=== PATIENT | female | born 1990 | race Caucasian/White ===

== ENCOUNTER 2018-11-20 17:48 | Emergency (ER) | payer BC, MEDICAID ==
--- NOTE | 2018-11-20 19:04 | ER Document Report ---
ED Medical Screen (RME) - General Chief Complaint: Vomiting Stated Complaint: VAGINAL BLEEDING Primary Care Provider: DARIUS GRESHAM DO [Primary Care Provider] - Follow up as needed TRAVEL OUTSIDE OF THE [place] IN LAST 30 DAYS: No - HPI Notes: 11/20/18 19:01 Patient is a G4, P2 28-year-old female with a less than 6-week gestation who presents complaining of nausea vomiting has been constant for the past 1 to 2 days. Patient states that she has not been able to keep anything down in 24 hours. She is hyperemesis when she is . Patient states that she did have a positive urine test 5 days ago, but has not missed menstrual cycle per patient. 2 days ago she passed a large clot and has only had brown- colored light blood when she wiped since then. Patient states that she has not had any pain or discomfort nor any cramping. Denies drug allergies. Denies BENITEZ, fever, neck pain, URI, CP, SOB, Abd pain, dysuria, back pain, or rash. I have treated and performed a rapid initial assessment of this patient. A comprehensive ED assessment and evaluation of the patient, analysis of test results and completion of medical decision making process will be conducted by additional ED providers. Patient is O+ by history, no rhogam ordered. PHYSICAL EXAMINATION: GENERAL: Well-appearing, well-nourished and in no acute distress. A&Ox4. Answers questions appropriately. LUNGS: Breath sounds clear to auscultation bilaterally and equal. No wheezes rales or rhonchi. HEART: Regular rate and rhythm without murmurs, rubs, gallops. ABDOMEN: Soft, nondistended abdomen. No guarding, no rebound. Normal bowel sounds present. No CVA tenderness bilaterally. Grossly nontender (cannot elicit thorough abd exam w/o bed, however). - Related Data Allergies/Adverse Reactions: No Known Allergies Allergy (Verified 11/20/18 17:54) Past Medical History - Immunizations Immunizations up to date: Yes Hx Diphtheria, Pertussis, Tetanus Vaccination: Yes Physical Exam - Vital signs Vitals: Temp Pulse Resp BP Pulse Ox 98.6 F 92 16 137/96 H 95 11/20/18 17:53 11/20/18 17:53 11/20/18 17:53 11/20/18 17:53 11/20/18 17:53 Course - Vital Signs Vital signs: Temp Pulse Resp BP Pulse Ox 98.6 F 92 16 137/96 H 95 11/20/18 17:53 11/20/18 17:53 11/20/18 17:53 11/20/18 17:53 11/20/18 17:53 Doctor's Discharge - Discharge Referrals: DARIUS GRESHAM, [Primary Care Provider] - Follow up as needed
--- NOTE | 2018-11-20 20:23 | ER Document Report ---
ED General - General Chief Complaint: Vomiting Stated Complaint: VAGINAL BLEEDING Time Seen by Provider: 11/20/18 20:21 Primary Care Provider: DARIUS GRESHAM DO [Primary Care Provider] - Follow up as needed TRAVEL OUTSIDE OF THE [place] IN LAST 30 DAYS: No - HPI Notes: Patient is a G4, P2 28-year-old female with a less than 6-week gestation who presents complaining of nausea vomiting has been constant for the past 1 to 2 days. Patient states that she has not been able to keep anything down in 24 hours. She is hyperemesis when she is . Patient states that she did have a positive urine test 5 days ago, but has not missed menstrual cycle per patient. 2 days ago she passed a large clot and has only had brown- colored light blood when she wiped since then. Patient states that she has not had any pain or discomfort nor any cramping. Denies drug allergies. Denies BENITEZ, fever, neck pain, URI, CP, SOB, Abd pain, dysuria, back pain, or rash. Past Medical History: Negative Past Surgical History: Reviewed in chart Social History: Reviewed in chart Family History: Reviewed and noncontributory for presenting illness Allergies: Reviewed, see documented allergy list. REVIEW OF SYSTEMS: CONSTITUTIONAL : No fever No chills No diaphoresis No recent illness EENT: No vision changes No congestion No sore throat CARDIOVASCULAR: No chest pain No palpitations RESPIRATORY: No shortness of breath No cough No difficulty breathing GASTROINTESTINAL: No abdominal pain No nausea vomiting No diarrhea GENITOURINARY: No dysuria No hematuria No difficulty urinating MUSCULOSKELETAL: No back pain No leg pain No arm pain SKIN: No rashes No lesions LYMPHATIC: No swollen, enlarged glands. NEUROLOGICAL: No lightheadedness No headache No weakness No paresthesias PSYCHIATRIC: No anxiety No depression PHYSICAL EXAMINATION: Vital signs reviewed, nursing noted reviewed. GENERAL: Well-appearing, well-nourished and in no acute distress. HEAD: Atraumatic, normocephalic. EYES: Eyes appear normal, extraocular movements intact, sclera anicteric, conjunctiva are normal. ENT: nares patent, oropharynx clear without exudates. Moist mucous membranes. NECK: Normal range of motion, supple without lymphadenopathy LUNGS: Breath sounds clear to auscultation bilaterally and equal. No wheezes rales or rhonchi. HEART: Regular rate and rhythm without murmurs ABDOMEN: Soft, nontender, normoactive bowel sounds. No rebound, guarding, or rigidity. No masses appreciated. EXTREMITIES: Nontender, good range of motion, no pitting or edema. NEUROLOGICAL: No focal neurological deficits. Moves all extremities s pontaneously Motor and sensory grossly intact on exam. PSYCH: Normal mood, normal affect. SKIN: Warm, Dry, normal turgor, no rashes or lesions noted on exposed skin - Related Data Allergies/Adverse Reactions: No Known Allergies Allergy (Verified 11/20/18 17:54) Past Medical History - Social History Smoking Status: Former Smoker Chew tobacco use (# tins/day): No Frequency of alcohol use: None Drug Abuse: None Family History: None Patient has suicidal ideation: No Patient has homicidal ideation: No Renal/ Medical History: Denies: Hx Peritoneal Dialysis - Immunizations Immunizations up to date: Yes Hx Diphtheria, Pertussis, Tetanus Vaccination: Yes Physical Exam - Vital signs Vitals: Temp Pulse Resp BP Pulse Ox 98.6 F 92 16 137/96 H 95 11/20/18 17:53 11/20/18 17:53 11/20/18 17:53 11/20/18 17:53 11/20/18 17:53 Course - Re-evaluation Re-evalutation: 11/20/18 20:36 Vitals reviewed. Nursing notes reviewed. Patient states she had had improvement of her nausea with previous pregnancies on Diclegis. We do not have Unisom but she will be given B6 and Reglan for her nausea symptoms. Ultrasound has been ordered to evaluate for possible ectopic in the setting of bleeding in early . Currently patient is not experiencing any pain. 11/20/18 21:56 Patient's ultrasound shows single live intrauterine gestation with small subchorionic hemorrhage. There is no ectopic . Patient's nausea has improved. Chart review shows her blood type is O+ and she is not requiring RhoGam. She will be referred to BUILDING INSPECTOR for follow-up. She was counseled on sy mptoms of early miscarriage and return precautions. Patient is stable for discharge. Laboratory 11/20/18 11/20/18 11/20/18 19:45 19:45 19:45 WBC 14.2 H RBC 5.19 Hgb 15.3 Hct 45.8 MCV 88 MCH 29.5 MCHC 33.5 RDW 13.1 Plt Count 288 Seg Neutrophils % 64.9 Lymphocytes % 25.7 Monocytes % 7.9 Eosinophils % 1.1 Basophils % 0.4 Absolute Neutrophils 9.2 H Absolute Lymphocytes 3.6 Absolute Monocytes 1.1 Absolute Eosinophils 0.2 Absolute Basophils 0.1 Sodium 138.1 Potassium 4.2 Chloride 100 Carbon Dioxide 21 L Anion Gap 17 BUN 14 Creatinine 0.63 Est GFR ( Amer) > 60 Est GFR (Non-Af Amer) > 60 Glucose 72 L Calcium 10.0 Total Bilirubin 1.1 Direct Bilirubin 0.3 Neonat Total Bilirubin Not Reportable Neonat Direct Bilirubin Not Reportable Neonat Indirect Bili Not Reportable AST 26 ALT 22 Alkaline Phosphatase 84 Total Protein 8.5 H Albumin 5.4 H Lipase 45.5 Beta HCG, Quant 8947.90 H Total Beta HCG POSITIVE Urine Color YELLOW Urine Appearance SLIGHTLY-CLOUDY Urine pH 6.0 Ur Specific [place] 1.027 Urine Protein 100 H Urine Glucose (UA) NEGATIVE Urine Ketones 80 H Urine Blood LARGE H Urine Nitrite NEGATIVE Urine Bilirubin NEGATIVE Urine Urobilinogen 2.0 H Ur Leukocyte Esterase SMALL H Urine WBC (Auto) 5 Urine RBC (Auto) 13 Urine Bacteria (Auto) TRACE Squamous Epi Cells Auto 11 Urine Mucus (Auto) MANY Urine Ascorbic Acid NEGATIVE Urine HCG, Qual POSITIVE H Transvaginal US 11/20/18 19:01 IMPRESSION: Single viable IUP of five weeks and six days with a subchorionic hemorrhage noted. Complex right ovarian corpus luteal cyst. - Vital Signs Vital signs: Temp Pulse Resp BP Pulse Ox 98.6 F 92 16 137/96 H 95 11/20/18 17:53 11/20/18 17:53 11/20/18 17:53 11/20/18 17:53 11/20/18 17:53 - Laboratory Result Diagrams: 11/20/18 19:45 11/20/18 19:45 Laboratory results interpreted by me: 11/20/18 11/20/18 11/20/18 19:45 19:45 19:45 WBC 14.2 H Absolute Neutrophils 9.2 H Carbon Dioxide 21 L Glucose 72 L Total Protein 8.5 H Albumin 5.4 H Beta HCG, Quant 8947.90 H Urine Protein 100 H Urine Ketones 80 H Urine Blood LARGE H Urine Urobilinogen 2.0 H Ur Leukocyte Esterase SMALL H Urine HCG, Qual POSITIVE H Discharge - Discharge Clinical Impression: Threatened miscarriage in early , Vomiting affecting Condition: Stable Disposition: HOME, SELF-CARE Instructions: Threatened Miscarriage ([facility]), Vomiting ([facility]) Additional Instructions: Please return to the emergency department if you have any worsening, or concern of your symptoms. Please return to the emergency department if you develop chest pain, difficulty breathing, severe abdominal pain, or ongoing vomiting. Please follow-up with your primary care physician in 2-3 days and any other recommended physicians. If prescribed, take all medications as directed. If you have any questions or concerns do not hesitate to return the emergency department for evaluation. Prescriptions: Doxylamine Succinate/Vit B6 [Philip Courtney 10-10 mg Tablet] 2 each PO HSP PRN #14 tablet.dr OWUSU Reason: Referrals: DARIUS GRESHAM DO [Primary Care Provider] - Follow up as needed [facility] [Provider Group] - Follow up in 3-5 days
[2018-11-20 20:25] LABS: ABSOLUTE BASOPHILS # (AUTO) 0.1 10^3/uL (0.0-0.2); ABSOLUTE EOSINOPHILS # (AUTO) 0.2 10^3/uL (0.0-0.6); ABSOLUTE LYMPHOCYTES (AUTO) 3.6 10^3/uL (0.5-4.7); ABSOLUTE MONOCYTES (AUTO) 1.1 10^3/uL (0.1-1.4); ABSOLUTE NEUT (AUTO) 9.2 10^3/uL (1.7-8.2); BASOPHILS % (AUTO) 0.4 % (0-2); EOSINOPHILS % (AUTO) 1.1 % (0-6); HEMATOCRIT 45.8 % (36.0-47.0); HEMOGLOBIN 15.3 g/dL (12.0-15.5); LYMPHOCYTES % (AUTO) 25.7 % (13-45); MEAN CORPUSCULAR HEMOGLOBIN 29.5 pg (27.0-33.4); MEAN CORPUSCULAR HGB CONC 33.5 g/dL (32.0-36.0); MEAN CORPUSCULAR VOLUME 88 fl (80-97); MONOCYTES % (AUTO) 7.9 % (3-13); PLATELET COUNT 288 10^3/uL (150-450); RED BLOOD COUNT 5.19 10^6/uL (3.72-5.28); RED CELL DISTRIBUTION WIDTH 13.1 % (11.5-14.0); SEGMENTED NEUTROPHILS % (AUTO) 64.9 % (42-78); TOTAL CELLS COUNTED % (AUTO) 100 %; WHITE BLOOD COUNT 14.2 10^3/uL (4.0-10.5)
[2018-11-20] MEDS ORDERED: PYRIDOXINE HCL 50 MG TABLET PO ONE (20:33)
[2018-11-20] MEDS ORDERED: METOCLOPRAMIDE HCL 10 MG TABLET PO ONE (20:35)
[2018-11-20 20:43] LABS: ALANINE AMINOTRANSFERASE 22 U/L (9-52); ALBUMIN 5.4 g/dL (3.5-5.0); ALKALINE PHOSPHATASE 84 U/L (38-126); ANION GAP 17 (5-19); ASPARTATE AMINO TRANSFERASE 26 U/L (14-36); BILIRUBIN,DIRECT 0.3 mg/dL (0.0-0.4); BILIRUBIN,TOTAL 1.1 mg/dL (0.2-1.3); BLOOD UREA NITROGEN 14 mg/dL (7-20); CARBON DIOXIDE 21 mmol/L (22-30); CHLORIDE 100 mmol/L (98-107); GLUCOSE 72 mg/dL (75-110); POTASSIUM 4.2 mmol/L (3.6-5.0); TOTAL PROTEIN 8.5 g/dL (6.3-8.2)
[2018-11-20 20:49] LABS: APPEARANCE,URINE SLIGHTLY-CLOUDY; BILIRUBIN,URINE NEGATIVE (NEGATIVE); COLOR,URINE YELLOW; GLUCOSE, URINE NEGATIVE (NEGATIVE); KETONES,URINE 80 mg/dL (NEGATIVE); LEUKOCYTE ESTERASE,URINE SMALL (NEGATIVE); NITRITE,URINE NEGATIVE (NEGATIVE); PROTEIN,URINE 100 mg/dL (NEGATIVE); URINE SPECIFIC GRAVITY 1.027
--- NOTE | 2018-11-20 21:18 | RADIOLOGY REPORT (SQ) ---
EXAM DESCRIPTION: US TRANSVAGINAL COMPLETED DATE/TME: 11/20/2018 19:01 CLINICAL HISTORY: 28 years, Female, + preg test by urine, passed clot 2d ago Findings: Uterus is anteverted and measures 8.6 x 5.7 x 4.2 cm. Single viable IUP is noted, corresponding to gestational age of five weeks and six days. heart rate is noted at 70 bpm. Subchorionic hemorrhage is suspected measuring 0.6 x 1.1 x 0.4 cm. Complex right ovarian cyst measuring 3.3 x 2.9 cm. Vascular flow preserved within both ovaries on color and spectral Doppler imaging. Cervix is closed measuring 2.1 cm. IMPRESSION: Single viable IUP of five weeks and six days with a subchorionic hemorrhage noted. Complex right ovarian corpus luteal cyst.
[2018-11-20 22:23] VITALS: BP 128/82
== END 2018-11-20 22:15 | disposition home or self-care (01) ==
LOC: ER 17:48
DX: O20.0 Threatened abortion (principal); O21.9 Vomiting of pregnancy, unspecified; Z3A.01 Less than 8 weeks gestation of pregnancy
CPT/HCPCS: 99284; 36415; 84702; 83690; 85025; 81025; 80053; 81001; 76817; 93976; J3490

== ENCOUNTER 2019-01-20 15:55 | Emergency (ER) | payer BC, MEDICAID ==
[2019-01-20] MEDS ORDERED: DIPHENHYDRAMINE HCL 50 MG/ML VIAL IV ONE (16:42)
[2019-01-20] MEDS ORDERED: NORMAL SALINE 1000 ML 1,000 ML IV ONE (16:42)
[2019-01-20] MEDS ORDERED: METOCLOPRAMIDE HCL INJ/PF 10 MG/2 ML SDV IV ONE (16:42)
--- NOTE | 2019-01-20 16:44 | ER Document Report ---
ED Medical Screen (RME) - General Chief Complaint: Nausea/Vomiting Stated Complaint: VOMITING Time Seen by Provider: 01/20/19 16:40 Primary Care Provider: DARIUS GRESHAM DO [Primary Care Provider] - Follow up as needed Information source: Patient Notes: Patient presents 14 weeks complaining of hyperemesis gravidarum. Patient is taking diclegis without improvement of her symptoms. Patient reports vomiting for the past 2 days. Patient denies any abdominal pain, vaginal bleeding or urinary symptoms. I have greeted and performed a rapid initial assessment of this patient. A comprehensive ED assessment and evaluation of the patient, analysis of test results and completion of the medical decision making process will be conducted by additional ED providers. TRAVEL OUTSIDE OF THE [place] IN LAST 30 DAYS: No - Related Data Allergies/Adverse Reactions: No Known Allergies Allergy (Verified 01/20/19 16:36) Past Medical History Renal/ Medical History: Denies: Hx Peritoneal Dialysis - Immunizations Immunizations up to date: Yes Hx Diphtheria, Pertussis, Tetanus Vaccination: Yes Physical Exam - Vital signs Vitals: Temp Pulse Resp BP Pulse Ox 98.4 F 91 14 132/82 H 99 01/20/19 16:07 01/20/19 16:07 01/20/19 16:07 01/20/19 16:07 01/20/19 16:07 - General General appearance: Appears well, Alert In distress: None - Abdominal Tenderness: Nontender Course - Vital Signs Vital signs: Temp Pulse Resp BP Pulse Ox 98.4 F 91 14 132/82 H 99 01/20/19 16:07 01/20/19 16:07 01/20/19 16:07 01/20/19 16:07 01/20/19 16:07 Doctor's Discharge - Discharge Referrals: DARIUS GRESHAM DO [Primary Care Provider] - Follow up as needed
[2019-01-20 17:15] LABS: ABSOLUTE BASOPHILS # (AUTO) 0.1 10^3/uL (0.0-0.2); ABSOLUTE LYMPHOCYTES (AUTO) 2.5 10^3/uL (0.5-4.7); ABSOLUTE MONOCYTES (AUTO) 0.8 10^3/uL (0.1-1.4); ABSOLUTE NEUT (AUTO) 11.3 10^3/uL (1.7-8.2); BASOPHILS % (AUTO) 0.4 % (0-2); EOSINOPHILS % (AUTO) 0.3 % (0-6); HEMATOCRIT 42.5 % (36.0-47.0); HEMOGLOBIN 14.4 g/dL (12.0-15.5); LYMPHOCYTES % (AUTO) 16.9 % (13-45); MEAN CORPUSCULAR HEMOGLOBIN 30.1 pg (27.0-33.4); MEAN CORPUSCULAR VOLUME 88 fl (80-97); MONOCYTES % (AUTO) 5.2 % (3-13); PLATELET COUNT 333 10^3/uL (150-450); RED CELL DISTRIBUTION WIDTH 13.1 % (11.5-14.0); SEGMENTED NEUTROPHILS % (AUTO) 77.2 % (42-78); TOTAL CELLS COUNTED % (AUTO) 100 %; WHITE BLOOD COUNT 14.6 10^3/uL (4.0-10.5)
[2019-01-20 17:32] LABS: APPEARANCE,URINE SLIGHTLY-CLOUDY; BILIRUBIN,URINE NEGATIVE (NEGATIVE); COLOR,URINE YELLOW; GLUCOSE, URINE 50 mg/dL (NEGATIVE); KETONES,URINE 80 mg/dL (NEGATIVE); LEUKOCYTE ESTERASE,URINE NEGATIVE (NEGATIVE); NITRITE,URINE NEGATIVE (NEGATIVE); PROTEIN,URINE 100 mg/dL (NEGATIVE); URINE SPECIFIC GRAVITY 1.027; UROBILINOGEN,URINE NEGATIVE mg/dL (<2.0)
[2019-01-20 17:40] LABS: ALKALINE PHOSPHATASE 81 U/L (38-126); ANION GAP 17 (5-19); ASPARTATE AMINO TRANSFERASE 25 U/L (14-36); BILIRUBIN,DIRECT 0.2 mg/dL (0.0-0.4); BILIRUBIN,TOTAL 0.7 mg/dL (0.2-1.3); BLOOD UREA NITROGEN 11 mg/dL (7-20); CALCIUM 10.2 mg/dL (8.4-10.2); CARBON DIOXIDE 17 mmol/L (22-30); CHLORIDE 101 mmol/L (98-107); GLUCOSE 90 mg/dL (75-110); TOTAL PROTEIN 8.5 g/dL (6.3-8.2)
--- NOTE | 2019-01-20 18:45 | ER Document Report ---
ED GI/ - General Chief Complaint: Nausea/Vomiting Stated Complaint: VOMITING Time Seen by Provider: 01/20/19 16:40 Primary Care Provider: DARIUS GRESHAM DO [NO LOCAL MD] - Follow up as needed Notes: Patient presents 14 weeks complaining of hyperemesis gravidarum. Patient is taking diclegis without improvement of her symptoms. Patient reports vomiting for the past 2 days. Patient denies any abdominal pain, vaginal bleeding or urinary symptoms. TRAVEL OUTSIDE OF THE [place] IN LAST 30 DAYS: No - Related Data Allergies/Adverse Reactions: No Known Allergies Allergy (Verified 01/20/19 16:36) Past Medical History - General Information source: Patient - Social History Smoking Status: Former Smoker Family History: None Patient has suicidal ideation: No Patient has homicidal ideation: No Renal/ Medical History: Denies: Hx Peritoneal Dialysis - Immunizations Immunizations up to date: Yes Hx Diphtheria, Pertussis, Tetanus Vaccination: Yes Review of Systems - Review of Systems Constitutional: denies: Fever EENT: No symptoms reported Cardiovascular: No symptoms reported Respiratory: No symptoms reported Gastrointestinal: See HPI Genitourinary: See HPI Female Genitourinary: See HPI Musculoskeletal: No symptoms reported Skin: No symptoms reported Hematologic/Lymphatic: No symptoms reported Neurological/Psychological: No symptoms reported Physical Exam - Vital signs Vitals: Temp Pulse Resp BP Pulse Ox 98.4 F 91 14 132/82 H 99 01/20/19 16:07 01/20/19 16:07 01/20/19 16:07 01/20/19 16:07 01/20/19 16:07 - Notes Notes: GENERAL: Alert, interacts well. No acute distress. HEAD: Normocephalic, atraumatic. EYES: Pupils equal, round, and reactive to light. Extraocular movements intact. ENT: Oral mucosa moist, tongue midline. NECK: Full range of motion. Supple. Trachea midline. LUNGS: Clear to auscultation bilaterally, no wheezes, rales, or rhonchi. No respiratory distress. HEART: Regular rate and rhythm. No murmur ABDOMEN: Soft, non-tender. Non-distended. Bowel sounds present in all 4 quadrants. EXTREMITIES: Moves all 4 extremities spontaneously. No edema, normal radial and dorsalis pedis pulses bilaterally. No cyanosis. BACK: no cervical, thoracic, lumbar midline tenderness. No saddle anesthesia, normal distal neurovascular exam. NEUROLOGICAL: Alert and oriented x3. Normal speech. cranial nerves II through XII grossly intact PSYCH: Normal affect, normal mood. SKIN: Warm, dry, normal turgor. No rashes or lesions noted. Course - Re-evaluation Re-evalutation: 01/20/19 18:43 Laboratory 01/20/19 01/20/19 01/20/19 16:58 16:58 16:58 WBC 14.6 H RBC 4.80 Hgb 14.4 Hct 42.5 MCV 88 MCH 30.1 MCHC 34.0 RDW 13.1 Plt Count 333 Lymph % (Auto) 16.9 [place] % (Auto) 5.2 Eos % (Auto) 0.3 Baso % (Auto) 0.4 Absolute Neuts (auto) 11.3 H Absolute Lymphs (auto) 2.5 Absolute Monos (auto) 0.8 Absolute Eos (auto) 0.0 Absolute Basos (auto) 0.1 Seg Neutrophils % 77.2 Sodium 134.8 L Potassium 4.0 Chloride 101 Carbon Dioxide 17 L Anion Gap 17 BUN 11 Creatinine 0.57 Est GFR ( Amer) > 60 Est GFR (MDRD) Non-Af > 60 Glucose 90 Calcium 10.2 Total Bilirubin 0.7 Direct Bilirubin 0.2 Neonat Total Bilirubin Not Reportable Neonat Direct Bilirubin Not Reportable Neonat Indirect Bili Not Reportable AST 25 ALT 15 Alkaline Phosphatase 81 Total Protein 8.5 H Albumin 5.0 Lipase 72.4 Urine Color YELLOW Urine Appearance SLIGHTLY-CLOUDY Urine pH 5.0 Ur Specific [place] 1.027 Urine Protein 100 H Urine Glucose (UA) 50 H Urine Ketones 80 H Urine Blood MODERATE H Urine Nitrite NEGATIVE Urine Bilirubin NEGATIVE Urine Urobilinogen NEGATIVE Ur Leukocyte Esterase NEGATIVE Urine WBC (Auto) 4 Urine RBC (Auto) 3 U Hyaline Cast (Auto) 1 Urine Bacteria (Auto) TRACE Squamous Epi Cells Auto 11 Urine Mucus (Auto) RARE Urine Ascorbic Acid NEGATIVE Leukocytosis likely due to vomiting. Patient's urine shows no signs of i nfection, sent for culture. Patient has had no further episodes of vomiting while in the emergency department states she overall feels a lot better after fluid hydration. Patient was able to drink some Gatorade prior to discharge with no episodes of vomiting. Discussed continued use of her directly just and following up with INFORMATION TECHNOLOGY COORDINATOR. At this time will discharge with return precautions and follow-up recommendations. Verbal discharge instructions given a the bedside and opportunity for questions given. Medication warnings reviewed. Patient is in agreement with this plan and has verbalized understanding of return precautions and the need for primary care follow-up in the next 24-72 hours. This medical record was dictated with voice recognizing software. There may be grammatical, syntax errors that are unintended. - Vital Signs Vital signs: Temp Pulse Resp BP Pulse Ox 98.4 F 91 14 132/82 H 99 01/20/19 16:07 01/20/19 16:07 01/20/19 16:07 01/20/19 16:07 01/20/19 16:07 - Laboratory Result Diagrams: 01/20/19 16:58 01/20/19 16:58 Laboratory results interpreted by me: 01/20/19 01/20/19 01/20/19 16:58 16:58 16:58 WBC 14.6 H Absolute Neuts (auto) 11.3 H Sodium 134.8 L Carbon Dioxide 17 L Total Protein 8.5 H Urine Protein 100 H Urine Glucose (UA) 50 H Urine Ketones 80 H Urine Blood MODERATE H Discharge - Discharge Clinical Impression: Vomiting affecting Condition: Stable Disposition: HOME, SELF-CARE Instructions: Vomiting ([facility]), Intravenous (IV) Fluids ([facility]) Additional Instructions: As we discussed you have been seen and treated in the emergency department for your vomiting during . Patient should continue to use her directly just as prescribed at home. Please also try to drink small amounts of clear liquids to stay hydrated. Please follow-up with INFORMATION TECHNOLOGY COORDINATOR in the next 24 to 48 hours. Return to the emergency room for any concerns. Forms: Return to Work Referrals: DARIUS GRESHAM DO [NO LOCAL MD] - Follow up as needed
[2019-01-20 19:02] VITALS: BP 125/70
== END 2019-01-20 19:03 | disposition home or self-care (01) ==
LOC: ER 15:55
DX: O21.0 Mild hyperemesis gravidarum (principal); O99.112 Other diseases of the blood and blood-forming organs and certain disorders involving the immune mechanism complicating pregnancy, second trimester; D72.829 Elevated white blood cell count, unspecified; Z87.891 Personal history of nicotine dependence; Z3A.14 14 weeks gestation of pregnancy
CPT/HCPCS: 99283; 96361; 96374; 96375; 36415; 87086; 83690; 85025; 80053; 81001; J1200; J2765; J7030

== ENCOUNTER 2019-03-15 16:14 | Emergency (ER) | payer BC, MEDICAID ==
[2019-03-15] MEDS ORDERED: LIDOCAINE 2% VISCOUS SOLN 20 ML UDCUP PO ONE (16:45)
[2019-03-15] MEDS ORDERED: METOCLOPRAMIDE HCL INJ/PF 10 MG/2 ML SDV IV ONE (16:45)
[2019-03-15] MEDS ORDERED: MAG HYDROX/AL HYDROX/SIMETH SUSP 30 ML UDCUP PO ONE (16:45)
--- NOTE | 2019-03-15 16:47 | ER Document Report ---
ED Medical Screen (RME) - General Chief Complaint: Nausea/Vomiting Stated Complaint: NAUSEA/VOMITING Time Seen by Provider: 03/15/19 16:44 Primary Care Provider: JOSSE PINON MD [Primary Care Provider] - Follow up as needed TRAVEL OUTSIDE OF THE [place] IN LAST 30 DAYS: No - HPI Notes: 03/15/19 16:46 Patient is a 29-year-old female proximally 20 weeks who presents compl aining of nausea and vomiting with decreased p.o. intake for the past 2 to 3 days. She is still urinating normally and having normal bowel movements. She did have diarrhea earlier this week which is resolved. No vaginal bleeding, odor, or discharge. No pelvic pain or cramping. Patient states that her acid reflux has been flaring up as well. No fever. No chest pain. No abdominal pain. I have treated and performed a rapid initial assessment of this patient. A comprehensive ED assessment and evaluation of the patient, analysis of test results and completion of medical decision making process will be conducted by additional ED providers. PHYSICAL EXAMINATION: GENERAL: Well-appearing, well-nourished and in no acute distress. A&Ox4. Answers questions appropriately. - Related Data Allergies/Adverse Reactions: No Known Allergies Allergy (Verified 01/20/19 16:36) Past Medical History Renal/ Medical History: Denies: Hx Peritoneal Dialysis - Immunizations Immunizations up to date: Yes Hx Diphtheria, Pertussis, Tetanus Vaccination: Yes Physical Exam - Vital signs Vitals: Temp Pulse Resp BP Pulse Ox 98.6 F 91 16 130/79 H 100 03/15/19 16:25 03/15/19 16:25 03/15/19 16:25 03/15/19 16:25 03/15/19 16:25 Course - Vital Signs Vital signs: Temp Pulse Resp BP Pulse Ox 98.6 F 91 16 130/79 H 100 03/15/19 16:25 03/15/19 16:25 03/15/19 16:25 03/15/19 16:25 03/15/19 16:25 Doctor's Discharge - Discharge Referrals: JOSSE PINON MD [Primary Care Provider] - Follow up as needed
[2019-03-15 17:32] LABS: ABSOLUTE BASOPHILS # (AUTO) 0.1 10^3/uL (0.0-0.2); ABSOLUTE EOSINOPHILS # (AUTO) 0.1 10^3/uL (0.0-0.6); ABSOLUTE LYMPHOCYTES (AUTO) 2.4 10^3/uL (0.5-4.7); ABSOLUTE NEUT (AUTO) 10.2 10^3/uL (1.7-8.2); BASOPHILS % (AUTO) 0.6 % (0-2); EOSINOPHILS % (AUTO) 0.8 % (0-6); HEMATOCRIT 37.9 % (36.0-47.0); HEMOGLOBIN 13.3 g/dL (12.0-15.5); LYMPHOCYTES % (AUTO) 17.6 % (13-45); MEAN CORPUSCULAR HEMOGLOBIN 32.9 pg (27.0-33.4); MEAN CORPUSCULAR HGB CONC 35.1 g/dL (32.0-36.0); MEAN CORPUSCULAR VOLUME 94 fl (80-97); MONOCYTES % (AUTO) 7.2 % (3-13); PLATELET COUNT 380 10^3/uL (150-450); RED BLOOD COUNT 4.05 10^6/uL (3.72-5.28); RED CELL DISTRIBUTION WIDTH 13.7 % (11.5-14.0); SEGMENTED NEUTROPHILS % (AUTO) 73.8 % (42-78); TOTAL CELLS COUNTED % (AUTO) 100 %; WHITE BLOOD COUNT 13.8 10^3/uL (4.0-10.5)
[2019-03-15 17:44] LABS: ALBUMIN 4.5 g/dL (3.5-5.0); ALKALINE PHOSPHATASE 83 U/L (38-126); ANION GAP 15 (5-19); ASPARTATE AMINO TRANSFERASE 27 U/L (14-36); BILIRUBIN,DIRECT 0.4 mg/dL (0.0-0.4); BILIRUBIN,TOTAL 0.9 mg/dL (0.2-1.3); BLOOD UREA NITROGEN 10 mg/dL (7-20); CALCIUM 9.7 mg/dL (8.4-10.2); CARBON DIOXIDE 18 mmol/L (22-30); CHLORIDE 104 mmol/L (98-107); GLUCOSE 83 mg/dL (75-110); POTASSIUM 4.2 mmol/L (3.6-5.0); TOTAL PROTEIN 7.9 g/dL (6.3-8.2)
[2019-03-15] MEDS: NORMAL SALINE 1000 ML 1,000 ML IV PRN ×2 (18:18→18:19)
[2019-03-15 19:00] LABS: APPEARANCE,URINE SLIGHTLY-CLOUDY; BILIRUBIN,URINE NEGATIVE (NEGATIVE); GLUCOSE, URINE NEGATIVE (NEGATIVE); KETONES,URINE 80 mg/dL (NEGATIVE); PROTEIN,URINE 100 mg/dL (NEGATIVE); URINE SPECIFIC GRAVITY 1.029
[2019-03-15 19:03] LABS: COLOR,URINE YELLOW
--- NOTE | 2019-03-15 19:09 | ER Document Report ---
ED GI/ - General Chief Complaint: Nausea/Vomiting Stated Complaint: NAUSEA/VOMITING Time Seen by Provider: 03/15/19 16:44 Primary Care Provider: JOSSE PINON MD [Primary Care Provider] - Follow up as needed Notes: RME NOTE: Patient is a 29-year-old female proximally 20 weeks who presents complaining of nausea and vomiting with decreased p.o. intake for the past 2 to 3 days. She is still urinating normally and having normal bowel movements. She did have diarrhea earlier this week which is resolved. No vaginal bleeding, odor, or discharge. No pelvic pain or cramping. Patient states that her acid r eflux has been flaring up as well. No fever. No chest pain. No abdominal pain. My HPI: Patient voices she does have gestational diabetes as well as hyper 's emesis. States she is on likely just 3 times a day. States she has "good days and bad days." States she vomits routinely but over the last 3 days feels as though she may have been dehydrated which is why she presents to the emergency department. Patient voices she also has a "burning sensation in her throat." States she has not taken any medications for acid indigestion. Patient continues to deny any vaginal discharge, abdominal pain or cramping. TRAVEL OUTSIDE OF THE [place] IN LAST 30 DAYS: No - Related Data Allergies/Adverse Reactions: No Known Allergies Allergy (Verified 01/20/19 16:36) Past Medical History - General Information source: Patient - Social History Smoking Status: Former Smoker Family History: None Patient has suicidal ideation: No Patient has homicidal ideation: No Renal/ Medical History: Denies: Hx Peritoneal Dialysis - Immunizations Immunizations up to date: Yes Hx Diphtheria, Pertussis, Tetanus Vaccination: Yes Review of Systems - Review of Systems Constitutional: denies: Fever EENT: No symptoms reported Cardiovascular: No symptoms reported Respiratory: No symptoms reported Gastrointestinal: See HPI Genitourinary: No symptoms reported Female Genitourinary: See HPI Musculoskeletal: No symptoms reported Skin: No symptoms reported Hematologic/Lymphatic: No symptoms reported Neurological/Psychological: No symptoms reported Physical Exam - Vital signs Vitals: Temp Pulse Resp BP Pulse Ox 98.6 F 91 16 130/79 H 100 03/15/19 16:25 03/15/19 16:25 03/15/19 16:25 03/15/19 16:25 03/15/19 16:25 - Notes Notes: GENERAL: Alert, interacts well. No acute distress. HEAD: Normocephalic, atraumatic. EYES: Pupils equal, round, and reactive to light. Extraocular movements intact. ENT: Oral mucosa moist, tongue midline. NECK: Full range of motion. Supple. Trachea midline. LUNGS: Clear to auscultation bilaterally, no wheezes, rales, or rhonchi. No respiratory distress. HEART: Regular rate and rhythm. No murmur ABDOMEN: Obviously gravid, soft, non-tender. Non-distended. Bowel sounds present in all 4 quadrants. EXTREMITIES: Moves all 4 extremities spontaneously. No edema, normal radial and dorsalis pedis pulses bilaterally. No cyanosis. BACK: no cervical, thoracic, lumbar midline tenderness. No saddle anesthesia, normal distal neurovascular exam. No CVA tenderness noted bilaterally. NEUROLOGICAL: Alert and oriented x3. Normal speech. cranial nerves II through XII grossly intact PSYCH: Normal affect, normal mood. SKIN: Warm, dry, normal turgor. No rashes or lesions noted. Course - Re-evaluation Re-evalutation: Laboratory 03/15/19 03/15/19 03/15/19 16:55 16:55 18:25 WBC 13.8 H RBC 4.05 Hgb 13.3 Hct 37.9 MCV 94 MCH 32.9 MCHC 35.1 RDW 13.7 Plt Count 380 Lymph % (Auto) 17.6 [place] % (Auto) 7.2 Eos % (Auto) 0.8 Baso % (Auto) 0.6 Absolute Neuts (auto) 10.2 H Absolute Lymphs (auto) 2.4 Absolute Monos (auto) 1.0 Absolute Eos (auto) 0.1 Absolute Basos (auto) 0.1 Seg Neutrophils % 73.8 Sodium 136.7 L Potassium 4.2 Chloride 104 Carbon Dioxide 18 L Anion Gap 15 BUN 10 Creatinine 0.50 L Est GFR ( Amer) > 60 Est GFR (MDRD) Non-Af > 60 Glucose 83 Calcium 9.7 Total Bilirubin 0.9 Direct Bilirubin 0.4 Neonat Total Bilirubin Not Reportable Neonat Direct Bilirubin Not Reportable Neonat Indirect Bili Not Reportable AST 27 ALT 23 Alkaline Phosphatase 83 Total Protein 7.9 Albumin 4.5 Lipase 67.0 Urine Color YELLOW Urine Appearance SLIGHTLY-CLOUDY Urine pH 6.0 Ur Specific [place] 1.029 Urine Protein 100 H Urine Glucose (UA) NEGATIVE Urine Ketones 80 H Urine Blood SMALL H Urine Nitrite (Reflex) NEGATIVE Urine Bilirubin NEGATIVE Urine Urobilinogen 4.0 H Leukocyte Esterase Rfl NEGATIVE Urine RBC (Auto) 2 U Hyaline Cast (Auto) 1 Urine Bacteria (Auto) TRACE Urine WBC (Reflex) 7 Squamous Epi Cells Auto 13 Urine Mucus (Auto) FEW Urine Ascorbic Acid NEGATIVE Patient has been treated with 2 L of fluid in the emergency department. Her urine has been sent for culture. I have discussed with her continued use of her likely just and potentially adding an acid indigestion medication. Also disc ussed close follow-up with [facility]. Patient voices she does have an appointment tomorrow with [facility]. Patient voices she does feel a lot better after treatments with GI cocktail in the emergency department. Patient has been able to drink fluids in the emergency department with no further episodes of vomiting. - Vital Signs Vital signs: Temp Pulse Resp BP Pulse Ox 98.5 F 83 16 116/73 97 03/15/19 20:16 03/15/19 20:16 03/15/19 20:16 03/15/19 20:16 03/15/19 20:16 - Laboratory Result Diagrams: 03/15/19 16:55 03/15/19 16:55 Laboratory results interpreted by me: 03/15/19 03/15/19 03/15/19 16:55 16:55 18:25 WBC 13.8 H Absolute Neuts (auto) 10.2 H Sodium 136.7 L Carbon Dioxide 18 L Creatinine 0.50 L Urine Protein 100 H Urine Ketones 80 H Urine Blood SMALL H Urine Urobilinogen 4.0 H Discharge - Discharge Clinical Impression: Indigestion Vomiting Qualifiers: Vomiting type: unspecified Vomiting Intractability: non-intractable Nausea presence: with nausea Qualified Code(s): R11.2 - Nausea with vomiting, uns pecified Condition: Stable Disposition: HOME, SELF-CARE Instructions: Intravenous (IV) Fluids ([facility]), Vomiting ([facility]) Additional Instructions: As we discussed you have been seen and treated in the emergency department for vomiting while . Please make sure you continue to use likely just as prescribed by your [facility]. You can also add Tums to your regimen. Please take them as instructed on the bottle. Please also make sure he follow-up with your [facility] provider in the next 12 to 24 hours. Return to the emergency department for any concerns. Referrals: JOSSE PINON MD [Primary Care Provider] - Follow up as needed
[2019-03-15 20:16] VITALS: BP 116/73
== END 2019-03-15 21:06 | disposition home or self-care (01) ==
LOC: ER 16:14
DX: O21.0 Mild hyperemesis gravidarum (principal); O99.619 Diseases of the digestive system complicating pregnancy, unspecified trimester; K30 Functional dyspepsia; O24.419 Gestational diabetes mellitus in pregnancy, unspecified control; Z3A.00 Weeks of gestation of pregnancy not specified
CPT/HCPCS: 99284; 96361; 96374; 36415; 83690; 85025; 80053; 81001; J3490 ×2; J2765; J7030

== ENCOUNTER 2019-05-17 12:25 | Outpatient (CLI) | payer MEDICAID ==
[2019-05-17] MEDS ORDERED: RINGERS SOLUTION,LACTATED 1,000 ML IV SCH (13:15)
[2019-05-17 13:33] LABS: APPEARANCE,URINE SLIGHTLY-CLOUDY; BILIRUBIN,URINE NEGATIVE (NEGATIVE); COLOR,URINE YELLOW; GLUCOSE, URINE NEGATIVE (NEGATIVE); KETONES,URINE 20 mg/dL (NEGATIVE); LEUKOCYTE ESTERASE,URINE SMALL (NEGATIVE); NITRITE,URINE NEGATIVE (NEGATIVE); PROTEIN,URINE 30 mg/dL (NEGATIVE); URINE SPECIFIC GRAVITY 1.017; UROBILINOGEN,URINE NEGATIVE mg/dL (<2.0)
[2019-05-17 13:47] LABS: URINE AMPHETAMINES SCREEN NEGATIVE; URINE BARBITURATES SCREEN NEGATIVE; URINE BENZODIAZEPINES SCREEN NEGATIVE; URINE COCAINE SCREEN NEGATIVE; URINE METHADONE SCREEN NEGATIVE; URINE PHENCYCLIDINE SCREEN NEGATIVE
[2019-05-17 13:53] LABS: URINE MARIJUANA (THC) SCREEN UNCONFIRMED POSITIVE
[2019-05-17] MEDS ORDERED: ONDANSETRON HCL INJ/PF 4 MG/2 ML SDV ONE (14:13)
[2019-05-17 14:41] LABS: ABSOLUTE BASOPHILS # (AUTO) 0.1 10^3/uL (0.0-0.2); ABSOLUTE EOSINOPHILS # (AUTO) 0.1 10^3/uL (0.0-0.6); ABSOLUTE LYMPHOCYTES (AUTO) 3.1 10^3/uL (0.5-4.7); ABSOLUTE NEUT (AUTO) 9.3 10^3/uL (1.7-8.2); BASOPHILS % (AUTO) 0.4 % (0-2); EOSINOPHILS % (AUTO) 0.9 % (0-6); HEMATOCRIT 34.1 % (36.0-47.0); HEMOGLOBIN 11.7 g/dL (12.0-15.5); LYMPHOCYTES % (AUTO) 22.7 % (13-45); MEAN CORPUSCULAR HEMOGLOBIN 30.4 pg (27.0-33.4); MEAN CORPUSCULAR HGB CONC 34.2 g/dL (32.0-36.0); MEAN CORPUSCULAR VOLUME 89 fl (80-97); MONOCYTES % (AUTO) 7.5 % (3-13); PLATELET COUNT 377 10^3/uL (150-450); RED BLOOD COUNT 3.84 10^6/uL (3.72-5.28); RED CELL DISTRIBUTION WIDTH 13.7 % (11.5-14.0); SEGMENTED NEUTROPHILS % (AUTO) 68.5 % (42-78); TOTAL CELLS COUNTED % (AUTO) 100 %; WHITE BLOOD COUNT 13.6 10^3/uL (4.0-10.5)
[2019-05-17] MEDS ORDERED: ONDANSETRON HCL INJ/PF 4 MG/2 ML SDV IV ONE (15:00)
[2019-05-17 15:02] LABS: ALBUMIN 3.4 g/dL (3.5-5.0); ALKALINE PHOSPHATASE 103 U/L (38-126); ANION GAP 9 (5-19); ASPARTATE AMINO TRANSFERASE 20 U/L (14-36); BILIRUBIN,DIRECT 0.3 mg/dL (0.0-0.4); BILIRUBIN,TOTAL 0.4 mg/dL (0.2-1.3); BLOOD UREA NITROGEN 5 mg/dL (7-20); CALCIUM 9.2 mg/dL (8.4-10.2); CARBON DIOXIDE 23 mmol/L (22-30); CHLORIDE 104 mmol/L (98-107); TOTAL PROTEIN 6.4 g/dL (6.3-8.2)
[2019-05-17] MEDS ORDERED: CEFTRIAXONE 1 GM/D5W RTU 1 GM/50 ML RTUPB IV ONE (15:05)
[2019-05-17 15:16] LABS: GLUCOSE 68 mg/dL (75-110)
[2019-05-17] MEDS ORDERED: CEFTRIAXONE INJ 1000 MG VIAL ONE (15:18)
== END 2019-05-17 16:15 | disposition home or self-care (01) ==
LOC: LC 12:25
PROVIDERS: ATTEND Obstetrics & Gynecology
PROC: 4A1HXCZ Monitoring of Products of Conception, Cardiac Rate, External Approach (ICD-10-PCS; principal; 2019-05-17)
DX: O99.89 Other specified diseases and conditions complicating pregnancy, childbirth and the puerperium (principal); M54.9 Dorsalgia, unspecified; Z3A.31 31 weeks gestation of pregnancy
CPT/HCPCS: 59899; 36415; 85025; 80053; 81001; 80307; G0480 ×2; J0696; J2405; 80349

== ENCOUNTER 2019-07-06 11:36 | Outpatient (CLI) | payer MEDICAID ==
--- NOTE | 2019-07-06 13:29 | Non Stress Test Report ---
Non Stress Test Datetime Report Generated by CPN: 07/06/2019 13:29 DEMOGRAPHIC EGA NST: 38.3 INDICATION Indication for Study (NST) Other: repeat from the office VITAL SIGNS Temperature - NST: 98.6 RESP - NST: 15 MONITORING Monitor Explained: Monitor Explained; Test Explained; Patient Verbalized Understanding Time on Monitor: 07/06/2019 12:00 Time off Monitor: 07/06/2019 13:00 NST Duration: 60 NST INTERVENTIONS NST Interventions: PO Hydration; Reposition Patient Physician Notified NST: Dr Rios BABY A: [id number] BABY A Movement : Present Contraction Frequency : irreg FHR Baseline : 145 Accelerations : 15X15 Decelerations : None Variability : Moderate 6-25bpm NST Review: Meets Criteria for Reactive NST NST Results: Reactive NST REPORT Report Trigger: Send Report
== END 2019-07-06 13:00 | disposition home or self-care (01) ==
LOC: LC 11:36
PROVIDERS: ATTEND Obstetrics & Gynecology
PROC: 4A1HXCZ Monitoring of Products of Conception, Cardiac Rate, External Approach (ICD-10-PCS; principal; 2019-07-06)
DX: O24.419 Gestational diabetes mellitus in pregnancy, unspecified control (principal); O99.283 Endocrine, nutritional and metabolic diseases complicating pregnancy, third trimester; E86.0 Dehydration; Z3A.38 38 weeks gestation of pregnancy
CPT/HCPCS: 59025

== ENCOUNTER 2019-07-07 23:41 | Inpatient (IN) | payer MEDICAID ==
[2019-07-08] MEDS ORDERED: RINGERS SOLUTION,LACTATED 1,000 ML IV PRN (00:12)
[2019-07-08] MEDS ORDERED: MISOPROSTOL 0.2 MG TABLET ONE (00:19)
[2019-07-08] MEDS ORDERED: OXYTOCIN 10 UNIT/ML VIAL ONE (00:19)
[2019-07-08] MEDS ORDERED: OXYTOCIN/NORMAL SALINE 20 UNIT/1,000 ML RTUINJ ONE (00:20)
[2019-07-08] MEDS ORDERED: LIDOCAINE 1% INJ-PF (10 MG/ML) 30 ML SDV ONE (00:20)
[2019-07-08 00:23] LABS: APPEARANCE,URINE CLOUDY; BILIRUBIN,URINE NEGATIVE (NEGATIVE); COLOR,URINE AMBER; GLUCOSE, URINE NEGATIVE (NEGATIVE); KETONES,URINE NEGATIVE (NEGATIVE); LEUKOCYTE ESTERASE,URINE TRACE (NEGATIVE); NITRITE,URINE NEGATIVE (NEGATIVE); PROTEIN,URINE 30 mg/dL (NEGATIVE); URINE SPECIFIC GRAVITY 1.023
[2019-07-08 00:38] LABS: ABSOLUTE EOSINOPHILS # (AUTO) 0.1 10^3/uL (0.0-0.6); ABSOLUTE MONOCYTES (AUTO) 1.1 10^3/uL (0.1-1.4); HEMOGLOBIN 12.8 g/dL (12.0-15.5); TOTAL CELLS COUNTED % (AUTO) 100 %
[2019-07-08 00:38] LABS: URINE AMPHETAMINES SCREEN NEGATIVE; URINE BARBITURATES SCREEN NEGATIVE; URINE BENZODIAZEPINES SCREEN NEGATIVE; URINE COCAINE SCREEN NEGATIVE; URINE MARIJUANA (THC) SCREEN NEGATIVE; URINE METHADONE SCREEN NEGATIVE; URINE PHENCYCLIDINE SCREEN NEGATIVE
[2019-07-08 00:44] LABS: ABSOLUTE NEUT (AUTO) 8.1 10^3/uL (1.7-8.2); BASOPHILS % (AUTO) 0.2 % (0-2); EOSINOPHILS % (AUTO) 1.2 % (0-6); HEMATOCRIT 36.7 % (36.0-47.0); LYMPHOCYTES % (AUTO) 24.6 % (13-45); MEAN CORPUSCULAR HEMOGLOBIN 31.1 pg (27.0-33.4); MEAN CORPUSCULAR HGB CONC 34.8 g/dL (32.0-36.0); MEAN CORPUSCULAR VOLUME 89 fl (80-97); MONOCYTES % (AUTO) 8.7 % (3-13); PLATELET COUNT 278 10^3/uL (150-450); RED CELL DISTRIBUTION WIDTH 16.5 % (11.5-14.0); SEGMENTED NEUTROPHILS % (AUTO) 65.3 % (42-78); WHITE BLOOD COUNT 12.3 10^3/uL (4.0-10.5)
[2019-07-08] MEDS ORDERED: FENTANYL/BUPIVACAINE/NS/PF 0 MCG/0 ML RTUINJ EPI ONE (00:48)
[2019-07-08] MEDS ORDERED: BUPIVACAINE HCL 0.25 % INJ/PF (2.5 MG/1 ML) 30 ML VIAL ONE (00:48)
[2019-07-08] MEDS ORDERED: EPHEDRINE SULFATE INJ 50 MG/1 ML AMPULE ONE (00:48)
--- NOTE | 2019-07-08 01:36 | Admission Physical ---
Datetime Report Generated by CPN: 07/08/2019 01:36 CURRENT ADMISSION Hx Assessment: The History has been Reviewed and is Current Chief Complaint: Uterine Contractions; Suspected Ruptured Membranes Chief Complaint Other: C/o water broke at [facility] 11: 15 pm Admit Impression : Active Labor; Ruptured Membranes Admit Plan: Admit to Unit; Initiate Labor Protocol ALLERGIES Medication Allergies: No Medication Allergies: No Known Allergies (05/17/2019) Latex: No Latex Allergies OBSTETRICAL HISTORY EDC: 07/17/2019 00:00 : 4 Para: 2 Term: 2 : 0 SAB: 1 IAB: 0 Livin Gestational Diabetes: Yes Rh Sensitization: No Incompetent Cervix: No RODOLFO: No Infertility: No ART Treatment: No Uterine Anomaly: No IUGR: No Hx Previous C/S: No Macrosomia: No Hx Loss/Stillborn: No PIH: No Hx : No Placenta Previa/Abruption: No Depression/PP Depression: No PTL/PROM: No Post Hemorrhage: No Current Procedures: Ultrasound SEE RECORDS Alcohol: No Marijuana : No Cocaine: No Other Illicit Drugs: No Cigarettes: Former Smoker. [id number] MEDICAL HISTORY Diabetes: Yes Diabetes Type: Gestational Diabetes Blood Transfusion: No Pulmonary Disease (Asthma, TB): No Breast Disease: No Hypertension: No Vegetable Grower Surgery: No Heart Disease: No Hosp/Surgery: Yes Autoimmune Disorder: No Anesthetic Complications: No Kidney Disease: No Abnormal Pap Smear: No Neuro/Epilepsy: No Psychiatric Disorders: No Other Medical Diseases: No Hepatitis/Liver Disease: No Significant Family History: No Varicosities/Phlebitis: No Trauma/Violence : No Thyroid Dysfunction: No INFECTIOUS HISTORY Gonorrhea: No Genital Herpes: No Chlamydia: No Tuberculosis: No Syphilis: No Hepatitis: No HIV/AIDS Exposure: No Rash or Viral Illness: No HPV: No PHYSICAL EXAM General: Normal HEENT: Normal Neurologic: Normal Thyroid: Normal Heart: Normal Lungs: Normal Breast: Normal Back: Normal Abdomen: Normal Genitourinary Exam: Normal Extremities: Normal DTRs: Normal Pelvic Type: Adequate Vital Signs: Reviewed VAGINAL EXAM Dilatation: 3 Effacement: 50 Station: -1 Contraction Comments: regular contractions every 3 minutes MEMBRANES Pooling: Positive Membranes: Ruptured Amniotic Fluid Color: Meconium, Light FETUS A EGA: 38.5 Monitoring: External US FHR- Baseline: 130 Variability: Moderate 6-25bpm Accelerations: 15X15 Decelerations: None FHR Category: Category I Presentation: Vertex Admit Comment: at 38.5 wks EGA in active labor -positive for rupture of membranes -Admit to LDR -NPO, IVFs: LR at 125 cc/hr -CEFM and toco -GBS negative -amniotic fluid with light mec?? -Desires natural labor -Hx 2 prior -anticipate PLANS FOR LABOR AND DELIVERY Labor and Delivery: None Pain Management: Epidural Feeding Preference: Breast Benefit of Breast Feed Discussed: Yes Circumcision: N/A INFORMED CONSENT Informed Consent Obtained: Vaginal Delivery; Risks, Benefits and Alternatives Discussed Signature: with User ID: [email or web address] : with User ID: [email or web address]
[2019-07-08] MEDS ORDERED: NA PHOS,M-B/NA PHOS,DI-BA (ADULT) 133 ML ENEMA PR PRN (01:37)
[2019-07-08] MEDS ORDERED: BENZOCAINE/MENTHOL AEROSOL SPRAY 56 ML TOP PRN (01:37)
[2019-07-08] MEDS ORDERED: PROMETHAZINE HCL 25 MG SUPP.RECT PR PRN (01:37)
[2019-07-08] MEDS ORDERED: ZOLPIDEM TARTRATE 5 MG TABLET PO PRN (01:37)
[2019-07-08] MEDS ORDERED: PSEUDOEPHEDRINE HCL 30 MG TABLET PO PRN (01:37)
[2019-07-08] MEDS ORDERED: GLYCERIN/WITCH HAZEL LEAF 1 EACH MED..WIPE TP PRN (01:37)
[2019-07-08] MEDS ORDERED: ACETAMINOPHEN 650 MG SUPP.RECT PR PRN (01:37)
[2019-07-08] MEDS ORDERED: DIBUCAINE 1% OINTMENT 28 GM TP PRN (01:37)
[2019-07-08] MEDS ORDERED: PROMETHAZINE HCL INJ 25 MG/1 ML VIAL IV PRN (01:37)
[2019-07-08] MEDS ORDERED: MAGNESIUM HYDROXIDE SUSP 30 ML UDCUP PO PRN (01:37)
[2019-07-08] MEDS ORDERED: PROMETHAZINE HCL 25 MG TABLET PO PRN (01:37)
[2019-07-08] MEDS ORDERED: DIPHENHYDRAMINE HCL 25 MG CAPSULE PO PRN (01:37)
[2019-07-08] MEDS ORDERED: OXYTOCIN/NORMAL SALINE 20 UNIT/1,000 ML RTUINJ IV PRN (01:37)
[2019-07-08] MEDS ORDERED: DIPH/PERTUSS(ACELL)/TETANUS VAC/PF 0.5 ML SYR (>=10YO) IM PRN (01:37)
[2019-07-08] MEDS ORDERED: MEASLES,MUMPS&RUBELLA VACC/PF 0.5 ML VIAL SUBCUT PRN (01:37)
[2019-07-08] MEDS ORDERED: ACETAMINOPHEN WITH CODEINE #3 TABLET PO PRN ×2 (01:37)
[2019-07-08] MEDS ORDERED: IBUPROFEN 800 MG TABLET ONE (01:40)
[2019-07-08] MEDS ORDERED: IBUPROFEN 800 MG TABLET PO ONE (02:15)
[2019-07-08] MEDS: FAMOTIDINE 20 MG TABLET PO SCH ×2 (10:16→21:23)
[2019-07-08] MEDS: FERROUS SULFATE 325 MG TABLET PO SCH ×2 (10:18→17:35)
[2019-07-08] MEDS: SENNOSIDES/DOCUSATE 8.6-50 MG 1 EACH TABLET PO SCH (10:18)
[2019-07-08] MEDS: DOCUSATE SODIUM 100 MG CAPSULE PO SCH ×2 (10:18→17:35)
[2019-07-08] MEDS: PRENATAL VITAMIN W DHA CAPSULE PO SCH (10:18)
[2019-07-08] MEDS: IBUPROFEN 800 MG TABLET PO SCH ×2 (13:51→21:22)
[2019-07-09] MEDS: IBUPROFEN 800 MG TABLET PO SCH ×2 (05:50→13:22)
[2019-07-09 07:40] LABS: MEAN CORPUSCULAR HEMOGLOBIN 31.5 pg (27.0-33.4); MEAN CORPUSCULAR HGB CONC 34.3 g/dL (32.0-36.0); MEAN CORPUSCULAR VOLUME 92 fl (80-97); PLATELET COUNT 275 10^3/uL (150-450); RED BLOOD COUNT 3.82 10^6/uL (3.72-5.28); RED CELL DISTRIBUTION WIDTH 16.3 % (11.5-14.0); WHITE BLOOD COUNT 10.4 10^3/uL (4.0-10.5)
[2019-07-09 07:52] VITALS: BP 110/52
[2019-07-09] MEDS: DOCUSATE SODIUM 100 MG CAPSULE PO SCH ×2 (09:54→17:16)
[2019-07-09] MEDS: FERROUS SULFATE 325 MG TABLET PO SCH ×2 (09:54→17:16)
[2019-07-09] MEDS: FAMOTIDINE 20 MG TABLET PO SCH (09:54)
[2019-07-09] MEDS: SENNOSIDES/DOCUSATE 8.6-50 MG 1 EACH TABLET PO SCH (09:54)
[2019-07-09] MEDS: PRENATAL VITAMIN W DHA CAPSULE PO SCH (09:54)
--- NOTE | 2019-07-09 10:33 | PDOC PROGRESS REPORT ---
Subjective-OB Progress Note for:: 07/09/19 Subjective: reports bleeding slowing, pain controlled with current meds. denies needs Physical Exam (OB) Vital Signs: Temp Pulse Resp BP Pulse Ox 97.8 F 65 16 110/52 L 98 07/09/19 07:35 07/09/19 07:35 07/09/19 07:35 07/09/19 07:35 07/09/19 07:35 Intake & Output 07/08/19 07/09/19 07/10/19 06:59 06:59 06:59 Output Total 350 Balance -350 Weight 71 kg - Abdomen Description: Soft Hernia Present: No Fundal Description: Firm Fundal Height: u/u - u/2 - Abdominal Distension: No distension Tenderness: Nontender - Extremities Lower extremities: Caden's sign - neg Calf: Normal, Nontender Objective-Diagnostic Laboratory: 07/09/19 06:57 07/09/19 06:57 WBC 10.4 RBC 3.82 Hgb 12.0 Hct 35.0 L MCV 92 MCH 31.5 MCHC 34.3 RDW 16.3 H Plt Count 275 Assessment and Plan(PN) - Time Spent with Patient Time with patient: Less than 15 minutes - Disposition Anticipated Discharge: Home Within: within 24 hours
--- NOTE | 2019-07-13 11:53 | Delivery Summary ---
Del Sum A-C Datetime Report Generated by CPN: 07/13/2019 11:52 DELIVERY PERSONNEL DELIVERY PERSONNEL: [id number] Delivery Doctor:: Rivka Phelps MD Labor and Delivery Nurse:: Maame Su, MAEGAN MATERNAL INFORMATION Delivery Anesthesia: None Medications After Delivery: Pitocin Bolus-Please Comment Meds After Delivery Comment: pitocin 20 units in 1000 ml NSS blous Estimated Blood Loss (ml): 150 Delivery QBL: 50 Maternal Complications: Precipitous Labor (<3hrs) Provider Comments: Called to patients room complete with urge to push. Pushed few a few contractions and delivered viable female infant over intact perineum. Cord cut and handed off to mother's chest with RN and nursery in attendance. crying. Both stable. No lacerations. Fundus firm LABOR SUMMARY EDC: 07/17/2019 00:00 No. Babies in Womb: 1 Attempted: No Labor Anesthesia: None LABOR INFORMATION Onset of Labor: 07/07/2019 23:30 Complete Dilatation: 07/08/2019 01:06 Oxytocin: N/A Group B Beta Strep: negative MEMBRANES Membranes Rupture Method: Spontaneous Membranes Rupture Method: Spontaneous Rupture of Membranes: 07/07/2019 23:00 Length of Rupture (hr): 2.28 Amniotic Fluid Color: Light Meconium Amniotic Fluid Color: Light Meconium Amniotic Fluid Amount: Moderate Amniotic Fluid Amount: Moderate Amniotic Fluid Odor: Normal Amniotic Fluid Odor: Normal STAGES OF LABOR Stage 1 hr: 1 Stage 1 min: 36 Stage 2 hr: 0 Stage 2 min: 11 Stage 3 hr: 0 Stage 3 min: 5 Total Time in Labor hr: 1 Total Time in Labor min: 52 VAGINAL DELIVERY Episiotomy: None Laceration #1: None Laceration Extension #1: N/A Sponge Count Correct: N/A BABY A INFORMATION Infant Delivery Date/Time: 07/08/2019 01:17 Method of Delivery: Vaginal Method of Delivery: Vaginal Nurse Controlled Delivery: No Born in Route : No : N/A Forceps: N/A Vacuum Extraction: N/A Shoulder Dystocia : No PRESENTATION/POSITION BABY A Presentation: Cephalic Cephalic Presentation: Vertex Vertex Position: Left Occipital Anterior Breech Presentation: N/A PLACENTA INFORMATION BABY A Placenta Delivery Time : 07/08/2019 01:22 Placenta Method of Delivery: Spontaneous Placenta Method of Delivery: Spontaneous Placenta Status: Delivered SCORES BABY A Heart Rate 1 min: >100 bpm Resp Effort 1 min: Good Cry Reflex Irritability 1 min: Cough or Sneeze or Pulls Away Muscle Tone 1 min: Active Motion Color 1 min: Blue/Pale Resuscitation Effort 1 min: Tactile Stimulation SCORE 1 MIN: 8 Heart Rate 5 min: >100 bpm Resp Effort 5 min: Good Cry Reflex Irritability 5 min: Cough or Sneeze or Pulls Away Muscle Tone 5 min: Active Motion Color 5 min: Body [place], Extremities Blue Resuscitation Effort 5 min: Tactile Stimulation SCORE 5 MIN: 9 INFORMATION BABY A Gestational Age at Delivery: 38.5 Gestational Status: Early Term- 37- 38.6 Weeks Infant Outcome : Liveborn Condition : Stable Sex: Female Infant Sex: Female IDENTIFICATION BABY A Infant Verification Date/Time: 07/08/2019 02:13 ID Band Number: [id number] Mother's Name Verified: Yes RN Verifying : Yancy Su MAEGAN Additional Verifying Personnel: Latricia Rogers RN WEIGHT/LENGTH BABY A Infant Birthweight (gm): 3280 Infant Weight (lb): 7 Weight (oz): 4 Infant Length (in): 19.50 Length (cm): 49.53 CORD INFORMATION BABY A No. Cord Vessels: 3 Nuchal Cord : Around Neck x1, Loose Cord Blood Taken: Yes-For Storage (Mom's Blood type +) Suction: Mouth; Nose ASSESSMENT BABY A Physical Findings at Delivery: Within Normal Limits Infant Respirations: Appears Normal Skin to Skin: Yes Business Development Manager/ALS Called : No BABY B INFORMATION : N/A SIGNATURES Signature: with User ID: [email or web address] : with User ID: [email or web address]
== END 2019-07-09 19:30 | disposition home or self-care (01) | DRG 807 ==
LOC: LC 23:41 → LR 07-08 00:18 → 2S 07-08 03:30
PROVIDERS: ADMIT Obstetrics & Gynecology; ATTEND Obstetrics & Gynecology
PROC: 10E0XZZ Delivery of Products of Conception, External Approach (ICD-10-PCS; principal; 2019-07-08)
DX: O69.81X0 Labor and delivery complicated by cord around neck, without compression, not applicable or unspecified (principal); Z37.0 Single live birth; O62.3 Precipitate labor; Z28.21 Immunization not carried out because of patient refusal; Z87.891 Personal history of nicotine dependence; Z3A.38 38 weeks gestation of pregnancy
CPT/HCPCS: 36415; 59025; 80307; 81005; 85025; 85027; 86592; 86850; 86900; 86901; J2590; J3010; J3490